=== PATIENT | female | born 2000 | race African-American/Black ===

== ENCOUNTER 2018-08-28 19:08 | Emergency (ER) | payer OTHER ==
[~2018-08-28] VITALS: Ht 157.5 cm; Wt 36.3 kg
[2018-08-28] MEDS ORDERED: TYLENOL EXTRA500 MG ORAL (19:18)
[2018-08-28 19:25] VITALS: BP 129/76
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
[2018-08-28] MEDS ORDERED: ROBAXIN-750750 MG PO (20:55)
[2018-08-28 21:06] VITALS: BP 129/76
--- NOTE | 2018-08-29 11:42 | Diagnostic Imaging Report ---
Indication: Pain Technique: 2 views of the sacrum and coccyx Comparison: none Findings: No acute fractures. Sacral arches are preserved. Sacroiliac joint spaces are preserved. Impression: Negative
--- NOTE | 2018-08-29 12:46 | Diagnostic Imaging Report ---
Indication: Left hip pain Technique: 2 views of the left hip Comparison: none Findings: No acute fractures. No dislocations. Joint spaces are preserved. Impression: Negative
== END 2018-08-28 21:06 | disposition home or self-care (01) ==
LOC: EMR 19:54
DX: S70.02XA Contusion of left hip, initial encounter (principal); S30.0XXA Contusion of lower back and pelvis, initial encounter; M62.838 Other muscle spasm; V03.90XA Pedestrian on foot injured in collision with car, pick-up truck or van, unspecified whether traffic or nontraffic accident, initial encounter; Y92.410 Unspecified street and highway as the place of occurrence of the external cause
CPT/HCPCS: 72220; 73502; 99284